=== PATIENT | female | born 1980 | race Caucasian/White ===

== ENCOUNTER 2019-05-30 06:25 | Inpatient (IN) | payer OTHER, BC ==
[2019-05-26 11:32] LABS: BASOPHILS # (AUTO) 0.1 (0.0-0.1); BASOPHILS % 0.7 % (0.0-1.0); EOSINOPHILS # (AUTO) 0.3 (0.0-0.4); EOSINOPHILS % 3.1 % (0.0-6.0); HEMATOCRIT 34.6 % (34.2-44.1); HEMOGLOBIN 10.8 g/dL (12.0-16.0); LYMPHOCYTES # (AUTO) 1.8 (1.0-3.2); LYMPHOCYTES % 21.7 % (18.0-39.1); MEAN CORPUSCULAR HEMOGLOBIN 27.1 pg (28-32); MEAN CORPUSCULAR HGB CONC 31.2 g/dL (31-35); MEAN CORPUSCULAR VOLUME 86.7 fL (81-99); MONOCYTES # (AUTO) 0.6 (0.2-0.8); MONOCYTES % 6.9 % (4.4-11.3); NEUTROPHILS # (AUTO) 5.5 (2.1-6.9); NEUTROPHILS % 67.4 % (38.7-80.0); PLATELET COUNT 223 x10e3/uL (140-360); RED BLOOD COUNT 3.99 x10e6/uL (3.6-5.1); RED CELL DISTRIBUTION WIDTH 14.2 % (11.7-14.4)
[2019-05-30] VITALS (8 sets, daily range): BP systolic 129–151; BP diastolic 66–81
[~2019-05-30 06:25] MED LIST: MELOXICAM7.5 MG PO; OMEPRAZOLE40 MG PO; VITAMIN D1000 UNI1 PO
--- OUTSIDE RECORDS SUMMARY | 2019-05-30 06:35 | XMS REPORT | Summary of Care ---
Author Organization Unknown Address Unknown Phone Unavailable Encounter HQ Leannguillermina_kartik(JYA) [id number] Date(s): 08/30/14 - 08/30/14 [facility] Outpatient Imaging - [place] [id number] [place] [address] Discharge Disposition: Home Physician Attending: Funmilayo Collier MD Reason for Visit 785.1 - PALPITATIONS Problem List No data available for this section Allergies, Adverse Reactions, Alerts No data available for this section Medications No data available for this section Medications Administered During Your Visit No data available for this section Immunizations No data available for this section
--- OUTSIDE RECORDS SUMMARY | 2019-05-30 06:35 | XMS REPORT | Summary of Care ---
Author Author [facility] Outpatient Imaging [facility]patient [facility] Address Unknown Phone Unavailable Encounter HQ Encntr_alijohn(FIN) [id number] Date(s): 12/11/17 - 12/11/17 [facility] Outpatient Imaging [facility] [address] [facility], [address] [place] [address] [phone] Encounter Diagnosis Noninflammatory disorder of uterus, unspecified (Final) - 12/16/17 Intramural leiomyoma of uterus (Final) - Follicular cyst of left ovary (Final) - Discharge Disposition: Home or Self Care Attending Physician: Jennifer Sandoval MD Vital Signs No data available for this section Problem List No data available for this section Allergies, Adverse Reactions, Alerts No data available for this section Medications No data available for this section Results No data available for this section Immunizations No data available for this section Procedures No data available for this section Social History No data available for this section Assessment and Plan No data available for this section
--- OUTSIDE RECORDS SUMMARY | 2019-05-30 06:35 | XMS REPORT | Continuity of Care Document ---
Author Author [facility] Organization [facility] Address Unknown Phone Unavailable Care Team Providers Care Cardiothoracic Anesthesia Technician Name Role Phone [facility] Unavailable Unavailable Problems Problem Status Onset Date Classification Date Reported Comments Source Noninflammatory disorder of uterus, unspecified 12/17/2017 03/19/2018 [facility] [place] R10.9 - UNSPECIFIED ABDOMINAL PAIN Active 10/10/2015 [facility] [email or web address] V76.12 - SCREEN MAMMOGRA Active 01/25/2015 [facility] [place] Intramural leiomyoma of uterus 03/19/2018 [facility] [place] Follicular cyst of left ovary 03/19/2018 [facility] [place] Medications No Data Provided for This Section Allergies, Adverse Reactions, Alerts No Known Medication Allergies Immunizations No Data Provided for This Section Results No Data Provided for This Section Pathology Reports No Data Provided for This Section Diagnostic Reports Report Value Date Source Pelvis w Pelvis Transvaginal US EXAM: US PELVIS TRANSABDOMINAL EXAM: US PELVIS TRANSVAGINAL DATE: 12/11/2017 12:54 PM [employer] MANAGER INDICATION: - D25.9 Leiomyoma of uterus, unspecified. Heavy menstrual cycles the past 2 years. ADDITIONAL INFORMATION: LMP: 12/04/2017; COMPARISON: 01/14/2016. TECHNIQUE: Multiplanar grayscale and color Doppler ultrasound images of the pelvis were obtained transabdominally through a distended urinary bladder followed by transvaginal examination postvoid. FINDINGS: Uterus: Orientation: Anteverted Size: 10.9 x 5.9 x 6.5 cm Masses: Within the right uterine body, again demonstrated is a mixed echogenicity predominantly mildly hyperechoic mass measuring 3.3 x 3.6 x 3.1 cm compatible with an intramural leiomyoma which is increased in size from the prior exam (2.5 x 1.9 x 1.8 cm on prior exam) Cervix: Normal. Endometrium: 13 mm. Within the endometrium, there is a hyperechoic lesion measuring 1.2 x 0.7 x 1.2 cm with a stalk of internal vascularity, likely an endometrial polyp. Right ovary: Size: 2.8 x 2.1 x 2.2 cm Cysts: None. Masses: None. Vascularity: Normal. Left ovary: Size: 3.0 x 2.2 x 2.4 cm Cysts: A dominant simple follicle seen in the left ovary measuring 2.1 cm in maximal diameter. Masses: None. Vascularity: Normal. Adnexa: No adnexal masses or fluid collections are seen. Free fluid: None. Other findings: None. IMPRESSION: 1. Hyperechoic 1.2 cm lesion within the endometrium with internal vascularity, likely an endometrial polyp. Associated endometrial cancer is not excluded. Hysteroscopy and biopsy are recommended for further evaluation. 2. Intramural leiomyoma of the uterus has increased in size and now measures 3.6 cm in maximal diameter Findings were discussed with Dr. Sandoval by telephone on 12/11/2017 at 1420 hours 12/11/2017 [facility] Extremity lower bilat CTA EXAM: CTA BILATERAL LOWER EXTREMITY WITH CONTRAST DATE: 07/03/2016 8:44 AM CDT INDICATION: I73.9 Peripheral vascular disease, unspecified ADDITIONAL INFORMATION: None. COMPARISON: None. TECHNIQUE: Volumetric CT acquisition of the bilateral lower extremity arteries. Axial, coronal and sagittal reconstructions. MIP reformats are created at the acquisition workstation. FINDINGS: CTA begins midpelvis. The ileal femoral system bilaterally from pelvis to groin is normal. Bilateral superficial and deep femoral arteries are without significant atherosclerotic disease and are normal caliber. The popliteal arteries are normal bilaterally. The patient has a slightly higher bifurcation on the right side than the left but there is excellent three-vessel runoff to the foot bilaterally. Degenerative changes in both knees are present IMPRESSION: Normal circulation in the areas imaged includes runoff bilaterally 07/03/2016 [facility] Breast Limited Uni US - BREAST LIMITED UNI US/L ULTRASOUND OF LEFT AXILLA: 05/22/2016 CLINICAL: Breast Mass. Comparison is made to exams dated: 05/22/2016 mammogram - [facility] and 02/01/2015 mammogram - [facility]. Color flow and real-time ultrasound of the left axilla were performed. No abnormalities are identified in the left axilla. Specifically, no suspicious findings are seen at the left axilla palpable area of concern. IMPRESSION: BENIGN Clinical follow-up of the left axilla palpable area of concern is recommended. No abnormal imaging findings identified. There is no sonographic evidence of malignancy. A 4 year screening mammogram is recommended. Abi Randle M.D. ms/:05/22/2016 13:53:07 Oil Refinery Operator: Theresa Sepulveda RT, [facility] This exam was dictated and interpreted by [id number] for Mayelin. letter sent: Normal exam Ultrasound BI-RADS: 2 Benign 05/22/2016 ROBERTO Dick Digital Mammo DX Ilsa MA - DIGITAL MAMMO DX ILSA MA BILATERAL DIGITAL DIAGNOSTIC MAMMOGRAM WITH CAD: 05/22/2016 CLINICAL: N63 Unspecified Lump In Breast. Current study was evaluated with a Computer Aided Detection (CAD) system. Comparison is made to exam dated: 02/01/2015 mammogram - [facility]. There are scattered fibroglandular densities in both breasts. No significant masses, calcifications, or other findings are seen in either breast. IMPRESSION: INCOMPLETE: NEEDS ADDITIONAL IMAGING EVALUATION There is no abnormality seen in the left axilla to correspond with the palpable abnormality and pain in the left axilla, however ultrasound is recommended. Abi Randle M.D. ms/penrad:05/22/2016 12:07:14 Oil Refinery Operator: Sunita Vail RT(R)(M), [facility] This exam was dictated and interpreted by [id number] for Mayelin. Mammogram BI-RADS: 0 Indeterminate 05/22/2016 ROBERTO [facility] Pelvis w Pelvis Transvaginal US EXAM: US PELVIS TRANSABDOMINAL EXAM: US PELVIS TRANSVAGINAL DATE: 01/14/2016 11:51 AM CDT INDICATION: N92.1 Excessive and frequent menstruation with irregular cycle ADDITIONAL INFORMATION: LMP: 12/19/2015; history of prior . COMPARISON: None. TECHNIQUE: Multiplanar grayscale and color Doppler ultrasound images of the pelvis were obtained transabdominally through a distended urinary bladder followed by transvaginal examination postvoid. FINDINGS: Uterus: Orientation: Anteverted Size: 11.3 x 6.0 x 7.1 cm Masses: Within the anterior right uterine body, there is an intramural and submucosal hypoechoic mass measuring 2.5 x 1.9 x 1.8 cm compatible with a leiomyoma. Cervix: Simple nabothian cysts are seen in the cervix. Endometrium: 17 mm. Slightly thickened with some slight heterogeneity. No focal abnormalities or abnormal endometrial vascularity are seen. Right ovary: Size: 2.6 x 2.3 x 3.7 cm Cysts: None. Masses: None. Vascularity: Normal. Left ovary: Size: 3.1 x 1.8 x 1.7 cm Cysts: None. Masses: None. Vascularity: Normal. Adnexa: No adnexal masses or fluid collections are seen. Free fluid: A trace amount simple free fluid is seen in the retrouterine cul-de-sac.. Other findings: None. IMPRESSION: 1. Mild heterogeneity of the endometrium with thickening up to 17 mm. Underlying endometrial polyps, cancer, or endometrial hyperplasia are not excluded. If endometrial biopsy is not performed, follow-up ultrasound in 6 weeks' time at a different stage of the menstrual cycle would be recommended to ensure regression/resolution of this finding. 2. Intramural and minimally partially submucosal 2.5 cm leiomyoma of the right uterine body. 3. Small amount of simple free fluid in the retrouterine cul-de-sac, likely physiologic. 01/14/2016 [facility] Abdomen complete US EXAM: ABDOMINAL ULTRASOUND CLINICAL INDICATION: Abdominal pain COMPARISON: None DISCUSSION: Transverse and longitudinal images of the upper abdomen were obtained. The liver demonstrates slight increased echogenicity can suggesting underlying fatty infiltration. The liver measures 16 cm at the midclavicular line.. The spleen is normal in echogenicity and size measuring 10.7 centimeters in length. No focal masses are seen in either the liver or spleen. The gallbladder is normal in appearance without stones, wall thickening or pericholecystic fluid. The sonographic Ward's sign is negative. There is no intrahepatic biliary dilatation. The common bile duct is normal in caliber and measure 3 mm. The visualized portions of the pancreas are unremarkable. The right kidney measures 11.3 centimeters in length and the left kidney measures 12.4 centimeters. There is normal renal cortical echogenicity and no hydronephrosis, mass or shadowing calculi. The visualized portions of the great vessels are normal. No free fluid is seen. Additional images of the area of patient concern in the right lower quadrant were obtained. Limited views of a normal appearing ovary were seen in that region. No other masses or fluid collections were seen. IMPRESSION: 1. Slight increased echogenicity. 2. Otherwise unremarkable exam.. Dictated by staff: Dr. Da Silva. 10/11/2015 [facility] Consultation Notes No Data Provided for This Section Discharge Summaries No Data Provided for This Section History and Physicals No Data Provided for This Section Vital Signs No Data Provided for This Section Encounters Location Location Details Encounter Type Encounter Number Reason For Visit Attending Provider ADM Date DC Date Status Source [facility] Outpatient Imaging - [place] [facility] [id number] Funmilayo Amira 08/30/2014 08/31/2014 [facility] [place] [facility] Outpatient Imaging - [place] [facility] [id number] Funmilayo Amira 02/01/2015 02/02/2015 [facility] [place] [facility] Outpatient Imaging - [place] [facility] [id number] Joe Ward 10/11/2015 10/12/2015 [facility] [place] [facility] Outpatient Imaging - [place] [facility] [id number] Funmilayo Amira 01/14/2016 01/15/2016 [facility] [place] [facility] Outpatient Imaging - [place] [facility] [id number] Funmilayo Amira 05/22/2016 05/23/2016 [facility] [place] [facility] Outpatient Imaging - [place] [facility] [id number] Curtis Warren 07/03/2016 07/04/2016 [facility] [place] [facility] Outpatient Imaging - [place] [facility] [id number] Jennifer Sandoval 12/11/2017 12/12/2017 [facility] [place] Procedures No Data Provided for This Section Assessment and Plan No Data Provided for This Section Plan of Care No Data Provided for This Section Social History Social History Date Source No data available for this section 12/12/2017 [facility] [place] No data available for this section 05/23/2016 [facility] [place] No data available for this section 02/02/2015 [facility] [place] Family History No Data Provided for This Section Advance Directives No Data Provided for This Section Functional Status No Data Provided for This Section
--- OUTSIDE RECORDS SUMMARY | 2019-05-30 06:35 | XMS REPORT | Summary of Care ---
Author Author [facility] Outpatient Imaging [facility]3] Outpatient Imaging [facility] Address Unknown Phone Unavailable Encounter HQ Encntr_alijohn(FIN) [id number] Date(s): 01/14/16 - 01/14/16 [facility] Outpatient Imaging [facility] [address] [facility], [address] [place], [place] [address] [place] [address] [phone] Discharge Disposition: Home Attending Physician: Funmilayo Collier MD Vital Signs No data available for [...]
--- OUTSIDE RECORDS SUMMARY | 2019-05-30 06:35 | XMS REPORT | Summary of Care ---
Author Author [facility] Outpatient Imaging [facility] Outpatient [facility] Address Unknown Phone Unavailable Encounter HQ Encntr_alijohn(FIN) [id number] Date(s): 10/11/15 - 10/11/15 [facility] Outpatient Imaging [facility] [address] [facility], [address] [place], [place] [address] [phone] Discharge Disposition: Home Attending Physician: Joe Ward MD Vital Signs No data available for [...]
--- OUTSIDE RECORDS SUMMARY | 2019-05-30 06:35 | XMS REPORT | Summary of Care ---
Author Organization Unknown Address Unknown Phone Unavailable Encounter HQ Encntr_alias(FIN) [id number] Date(s): 02/01/15 - 02/01/15 [facility] Outpatient Imaging - [address] [phone] Discharge Disposition: Home Physician Attending: Funmilayo Collier MD Vital Signs No data [...]
--- OUTSIDE RECORDS SUMMARY | 2019-05-30 06:35 | XMS REPORT | Clinical Summary ---
Author Author [facility] [place] [facility] Address Unknown Phone Unavailable Care Team Providers Care Workers Compensation Examiner Name Role Phone Funmilayo Collier MD PCP Allergies Comments Active Allergy Reactions Severity Noted Date Aspirin 06/11/2017 Penicillins 06/11/2017 Medications End Date Status Medication Sig Dispensed Refills Start Date Active omeprazole (PriLOSEC) 20 TK 1 C PO D 1 05/01/201 MG capsule 7 Active Problems Not on file Social History Date Tobacco Use Types Packs/Day Years Used Never Smoker Alcohol Use Drinks/Week oz/Week Comments No Sex Assigned at Date Recorded Not on file Industry Job Start Date Occupation Not on file Not on file Not on file Travel End Travel History Travel Start No recent travel history available. Last Filed Vital Signs Not on file Plan of Treatment Health Maintenance Due Date Last Done Comments INFLUENZA VACCINE 06/02/2019 08/06/2016, 07/30/2015, 08/30/2014 Results Not on fileafter 05/29/2018 Insurance Type Payer Benefit Subscriber ID Effective Phone Address Plan / Dates Group PPO BCBS ANTHEM xxxxxxxxxxxx [id number] BLUE CROSS resent Advance Directives Patient has advance care planning documents on file. For more information, kristy hannon contact: Pepito Cervantes [address] [place] [address]
--- OUTSIDE RECORDS SUMMARY | 2019-05-30 06:36 | XMS REPORT | Summary of Care ---
Author Author [facility] Outpatient Imaging [facility] Outpatient [facility] Address Unknown Phone Unavailable Encounter HQ Encntr_alias(FIN) [id number] Date(s): 07/03/16 - 07/03/16 [facility] Outpatient Imaging [facility] [address] [facility], [address] [place] [phone] Discharge Disposition: Home or Self Care Attending Physician: Curtis Warren MD Vital Signs No data available for [...]
--- OUTSIDE RECORDS SUMMARY | 2019-05-30 06:36 | XMS REPORT | Summary of Care ---
Author Author [facility] Unknown Address Unknown Phone Unavailable Care Team Providers Care Drawing Instructor Name Role Phone TARSHA DUEÑAS M.D. Unavailable Unavailable SPENSER MENDOZA DC, TARSHA Gamble Unavailable Unavailable Unavailable Unavailable Functional Status Name Dates Details Functional status health issues are not documented Status: Name Dates Details Cognitive status health issues are not documented Status: Problems Name Dates Details Anxiety (300.00, F41.9) Status: Active Encounter for routine gynecological examination with Papanicolaou smear of cervix (V72.31, Z01.419) Status: Active Flu vaccine need (V04.81, Z23) Status: Active Immunity status testing (V72.61, Z01.84) Status: Active Anemia (285.9, D64.9) Status: Active Bilateral edema of lower extremity (782.3, R60.0) Status: Active Menometrorrhagia (626.2, N92.1) Status: Active 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, 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) Status: Active Claudication, intermittent (443.9, I73.9) Status: Active Tinea pedis of right foot (110.4, B35.3) Status: Active Breast mass (611.72, N63.0) Status: Active PAD (peripheral artery disease) (443.9, I73.9) Status: Active Tachycardia (785.0, R00.0) Status: Active Obesity (278.00, E66.9) Status: Active Acute recurrent sinusitis (461.9, J01.91) Status: Active Arthralgia (719.40, M25.50) Status: Active Leg cramping (729.82, R25.2) Status: Active Acid reflux (530.81, K21.9) Status: Active Irregular menstrual cycle (626.4, N92.6) Status: Active Need for influenza vaccination (V04.81, Z23) Status: Active Acute vaginitis (616.10, N76.0) Status: Active Burning with urination (788.1, R30.0) Status: Active Screening-pulmonary TB (V74.1, Z11.1) Status: Active Acute bronchitis due to infection (466.0, J20.8) Status: Active Tinea corporis (110.5, B35.4) Status: Active Acute pharyngitis (462, J02.9) Status: Active Fibroids (218.9, D25.9) Status: Active Abdominal pain in female (789.00, R10.9) Status: Active Abnormal ultrasound of uterus (793.5, R93.5) Status: Active Abnormal uterine bleeding (AUB) (626.9, N93.9) Status: Active Medications Name Dates Details Advil 200 MG Oral Tablet TAKE 4 TABLET DAILY PRN * Start : 02-Jun-2016 Active Omeprazole 20 MG Oral Capsule Delayed Release TAKE 1 CAPSULE BY MOUTH DAILY * Quantity: 90 Refills: 0 TARSHA DUEÑAS M.D. * Start : 29-Jan-2018 Active Voltaren GEL * Refills: 0 Active M2 Magnesium CAPS * Refills: 0 Active Allergies and Adverse Reactions Name Dates Details Aspirin TABS (Allergy) Status: Active Penicillins (Allergy) Status: Active Past Medical History Name Dates Details History of No significant past medical history Status: Resolved Procedures Procedure Dates Details [QLH] CBC (INCLUDES DIFF/PLT) Date: 09-Dec-2017 History of Section Completed Immunization Name Dates Details Fluzone INJ Lot #: [id number] on: 30-Aug-2014 MMR Lot #: [id number] on: 30-Jan-2015 Hepatitis B Lot #: [id number] on: 30-Jan-2015 Hepatitis B Lot #: [id number] on: 27-Feb-2015 Hepatitis B Lot #: [id number] on: 30-Jul-2015 Fluzone INJ Lot #: [id number] on: 30-Jul-2015 PPD Lot #: [id number] on: 28-Aug-2015 MMR Lot #: [id number] on: 11-Sep-2015 Fluzone Quadrivalent 0.5 ML Intramuscular Suspension Lot #: [id number] on: 06-Aug-2016 PPD Lot #: [id number] on: 06-Aug-2016 PPD Lot #: [id number] on: 25-Nov-2016 Fluzone Quadrivalent 0.5 ML Intramuscular Suspension Lot #: [id number] on: 16-Jul-2017 Tubersol 5 UNIT/0.1ML Intradermal Solution Lot #: [id number] on: 30-Sep-2017 Family History Name Dates Details Family history of chronic obstructive pulmonary disease (V17.6, Z82.5) Status: Active Family history of renal failure (V18.69, Z84.1) Status: Active Family history of hypertension (V17.49, Z82.49) Status: Active Family history of arthritis (V17.7, Z82.61) Status: Active Family history of congestive heart failure (V17.49, Z82.49) Status: Active Name Dates Details Family history of congestive heart failure (V17.49, Z82.49) Status: Active Social History Name Dates Details - Status: Name Dates Details Never smoker Vital Signs Date Test Result Details No Known Vitals to report Results Date Description Value Details Results not documented Plan of Care Name Dates Details Planned Observations Planned Goals not documented Instructions Name Dates Details Instructions not documented Encounters Appointment; TARSHA DUEÑAS M.D. Encounter Diagnosis: Problem not documented On: 19-May-2016 10:45 Appointment; EDWARD CARDOZA M.D. Encounter Diagnosis: Problem not documented On: 02-Jun-2016 11:00 Appointment; SANDOVAL LAINEZ Encounter Diagnosis: Problem not documented On: 09-Jun-2016 13:00 Appointment; EDWARD CARDOZA M.D. Encounter Diagnosis: Problem not documented On: 16-Jun-2016 11:00 Appointment; TARSHA DUEÑAS M.D. Encounter Diagnosis: Problem not documented On: 06-Aug-2016 15:15 Appointment; KUNAL WILLIAM M.D. Encounter Diagnosis: Problem not documented On: 12-Aug-2016 13:00 Appointment; ANDRÉS MCNULTY D.O. Encounter Diagnosis: Problem not documented On: 25-Nov-2016 15:45 Appointment; TARSHA DUEÑAS M.D. Encounter Diagnosis: Problem not documented On: 12-Dec-2016 9:30 Appointment; TARSHA DUEÑAS M.D. Encounter Diagnosis: Problem not documented On: 22-May-2017 13:45 Appointment; TARSHA DUEÑAS M.D. Encounter Diagnosis: Problem not documented On: 16-Jul-2017 12:30 Appointment; DIANA MICHELLE NP Encounter Diagnosis: Problem not documented On: 30-Sep-2017 15:45 Appointment; DIANA MICHELLE NP Encounter Diagnosis: Problem not documented On: 15-Oct-2017 14:00 Appointment; ANDRÉS MCNULTY D.O. Encounter Diagnosis: Problem not documented On: 05-Nov-2017 14:00 Appointment; MARLEEN BAEZ M.D. Encounter Diagnosis: Problem not documented On: 09-Dec-2017 15:30
[2019-05-30] MEDS ORDERED: LEVOFLOXACIN 500MG/D5W 100ML 100 ML IV ONE (06:44)
[2019-05-30] MEDS ORDERED: BUPIVACAINE 0.25% 30ML SDV INJ ONE (06:57)
[2019-05-30] MEDS ORDERED: SCOPOLAMINE 1.5 MG PATCH TOP SCH (07:30)
[2019-05-30] MEDS ORDERED: METOCLOPRAMIDE HCL 10 MG/2ML VIAL ONE (09:02)
[2019-05-30] MEDS ORDERED: ONDANSETRON HCL INJ 2MG/ML 2ML 2 MG/ML VIAL ONE ×2 (09:02→18:50)
[2019-05-30] MEDS ORDERED: HYDROMORPHONE 2MG/ML 2 MG/ML ML ONE (09:02)
--- NOTE | 2019-05-30 09:35 | NUR ---
received report from Rachelle. pt is s/p lap gastric sleeve. pt vitals are 120/70 hr 84 rr 20 o2 sat 96% on 2L of oxygen and temp 98.5 degrees F.
--- OUTSIDE RECORDS SUMMARY | 2019-05-30 09:42 | XMS REPORT | Continuity of Care Document ---
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 Name Role Phone [employer] Unavailable Unavailable Problems Problem Status Onset Date Classification Date Reported Comments Source Noninflammatory disorder of uterus, unspecified 12/17/2017 03/19/2018 [facility] R10.9 - UNSPECIFIED ABDOMINAL PAIN Active 10/10/2015 [facility] V76.12 - SCREEN MAMMOGRA Active 01/25/2015 [facility] [place] Intramural leiomyoma of uterus 03/19/2018 [facility] Follicular cyst of left ovary 03/19/2018 [facility] Medications No Data Provided for This Section Allergies, Adverse Reactions, Alerts No Known Medication Allergies Immunizations No Data Provided for This Section Results No Data Provided for This Section Pathology Reports No Data Provided for This Section Diagnostic Reports Report Value Date Source Pelvis w Pelvis Transvaginal US EXAM: US PELVIS TRANSABDOMINAL EXAM: US PELVIS TRANSVAGINAL DATE: 12/11/2017 12:54 PM SALES ANALYST INDICATION: - D25.9 Leiomyoma of uterus, unspecified. [...] telephone on 12/11/2017 at 1420 hours 12/11/2017 [facility] Extremity lower bilat CTA EXAM: CTA BILATERAL [...] the areas imaged includes runoff bilaterally 07/03/2016 [facility] Breast Limited Uni US - BREAST LIMITED UNI US/L ULTRASOUND OF LEFT AXILLA: 05/22/2016 CLINICAL: Breast Mass. Comparison is made to exams dated: 05/22/2016 mammogram - [facility] and 02/01/2015 mammogram - [facility]. Color flow and real-time ultrasound of the [...] is recommended. Abi Randle M.D. ms/:05/22/2016 13:53:07 Geology Associate: Theresa Sepulveda RT, [facility] This exam was dictated and interpreted by [id number] for Mayelin. letter sent: Normal exam Ultrasound BI-RADS: 2 Benign 05/22/2016 ROBERT[facility] Dick Digital Mammo DX Ils[place] MA - DIGITAL MAMMO DX ILSA MA BILATERAL DIGITAL DIAGNOSTIC MAMMOGRAM WITH CAD: 05/22/2016 CLINICAL: N63 Unspecified Lump In Breast. Current study was evaluated with a Computer Aided Detection (CAD) system. Comparison is made to exam dated: 02/01/2015 mammogram - [facility]. There are scattered fibroglandular densities in both breasts. No significant masses, calcifications, or other findings are seen in either breast. IMPRESSION: INCOMPLETE: NEEDS ADDITIONAL IMAGING EVALUATION There is no abnormality seen in the left axilla to correspond with the palpable abnormality and pain in the left axilla, however ultrasound is recommended. Abi Randle M.D. ms/penrad:05/22/2016 12:07:14 Geology Associate: Sunita Vail RT(R)(M), [facility] This exam was dictated and interpreted by [id number] for Mayelin. Mammogram BI-RADS: 0 Indeterminate 05/22/2016 [...] in the retrouterine cul-de-sac, likely physiologic. 01/14/2016 [facility] Abdomen complete US EXAM: ABDOMINAL ULTRASOUND CLINICAL [...] Dictated by staff: Dr. Da Silva. 10/11/2015 [facility] Consultation Notes No Data Provided for This Section Discharge Summaries No Data Provided for This Section History and Physicals No Data Provided for This Section Vital Signs No Data Provided for This Section Encounters Location Location Details Encounter Type Encounter Number Reason For Visit Attending Provider ADM Date DC Date Status Source [facility] [place] [facility] [id number] Funmilayo Amira 08/30/2014 08/31/2014 [facility] [place] [facility] [place] [facility] [id number] Funmilayo Amira 02/01/2015 02/02/2015 [facility] [place] [facility] [id number] Joe Ward 10/11/2015 10/12/2015 [facility] [id number] Funmilayo Amira 01/14/2016 01/15/2016 [facility] [place] [facility] [id number] Funmilayo Amira 05/22/2016 05/23/2016 [facility] [place] [facility] [id number] Curtis Warren 07/03/2016 07/04/2016 [facility] [id number] Jennifer Sandoval 12/11/2017 12/12/2017 [facility] Procedures No Data Provided for This Section Assessment and Plan No Data Provided for This Section Plan of Care No Data Provided for This Section Social History Social History Date Source No data available for this section 12/12/2017 [facility] No data available for this section 05/23/2016 [facility] [place] No data available for this section 02/02/2015 [facility] [place] Family History No Data Provided for This Section Advance Directives No Data Provided for This Section Functional Status No Data Provided for This Section
--- OUTSIDE RECORDS SUMMARY | 2019-05-30 09:42 | XMS REPORT | Clinical Summary ---
Author Author [facility] [employer] Address Unknown Phone Unavailable Care Team Providers Care Rn Maternity Name Role Phone Funmilayo Collier MD PCP [...] more information, kristy hannon contact: Pepito Cervantes [address] [place] [address]
--- NOTE | 2019-05-30 09:58 | NUR ---
Received pt from PACU, pt is alert, no s/s of distress. 2L O2 via NC Right Hand 20g with IVF running. IV site is asymptomatic. CRISTINA hose and SCD are in place, SCD attached to pump. pt is complaining of pain on the right side of abdomen.
[2019-05-30] MEDS: ONDANSETRON HCL INJ 2MG/ML 2ML 2 MG/ML VIAL IV PRN ×2 (11:10→22:10)
[2019-05-30] MEDS: MORPHINE SULFATE 2 MG/ML SYR 1ML IV PRN ×3 (11:10→22:10)
--- NOTE | 2019-05-30 11:19 | Operative Report ---
DATE OF PROCEDURE: 05/30/2019 SURGEON: Greg Velazquez MD PREOPERATIVE DIAGNOSES: 1. Morbid obesity. 2. BMI 43. 3. Obstructive sleep apnea. 4. Gastroesophageal reflux disease. POSTOPERATIVE DIAGNOSES: 1. Morbid obesity. 2. BMI 43. 3. Obstructive sleep apnea. 4. Gastroesophageal reflux disease. PREOPERATIVE INDICATION: Treat disease, prevent complications related to comorbid conditions of obesity. PROCEDURE: Laparoscopic vertical sleeve gastrectomy. ANESTHESIA: General. COATING ENGINEER: Silvano Salinas, surgical device sales representative (needed due to complexity of case). FLUIDS: 1 L crystalloid. ESTIMATED BLOOD LOSS: 70 mL. DRAINS: None. COMPLICATIONS: None. SPECIMENS: Partial stomach. FINDINGS: 1. Normal upper GI anatomy. 2. Negative intraoperative EGD leak test. 3. Hepatomegaly. GRAFTS: None. PROCEDURE IN DETAIL: The patient was brought to the operating room and was intubated under general endotracheal anesthesia. She was sterilely prepped and draped in the usual fashion. A preprocedure pause was performed identifying the patient, use of perioperative antibiotics, intended procedure, and staff surgeon. Access was gained via a 5 mm left subcostal incision using a Veress needle. The abdomen was insufflated, four additional trocars were placed in the standard position. Liver retractor was used to expose the stomach. Of note, the liver was extremely large, making visualization of the proximal stomach difficult. I then mobilized the greater curvature of the stomach with the [place] LigaSure device beginning about 4 cm proximal to the pyloric valve to the left josie of the diaphragm. An adult sized endoscope was then inserted along the lesser curvature of stomach. The greater curve of the stomach was resected with multiple firings of an Endo DIANNA [employer] stapling device. The first two loads were 60 mm green loads. The final loads were blue load 60 mm in size. Hemoclips were applied on the staple line where there were necessary. We submerged the sleeve under saline. No leaks were identified. The specimen was removed through the right periumbilical port site. The port site was closed with 0 Vicryl suture using the Jonathan Scott technique in a [id number] fashion. Hemostasis was again verified and the abdomen was desufflated. The trocars were removed. Liver tractor was removed. The incision sites were closed with 4-0 Monocryl suture in a subcuticular fashion. Dermabond dressings were applied. A 0.25% bupivacaine was used both at the preperitoneal incision sites. The patient tolerated the procedure well. Type of wound was type 2, clean and contaminated. MD DECLAN Coleman/ANABEL /[id number]
--- NOTE | 2019-05-30 11:47 | NUR ---
pt complaining of gas, instructed pt that ambulation will help relieve the gas feeling. pt verbalized understanding but stated that she doesn't think that she will be able to walk at this time. will continue to encourage pt to ambulate.
[2019-05-30] MEDS ORDERED: PROMETHAZINE 12.5MG/ NACL 0.9% 12.5 MG/50 ML BAG IV PRN (17:45)
[2019-05-30] MEDS ORDERED: LIDOCAINE HCL 2% LOCAL INJ 5 ML SDV VIAL INJ ONE (18:50)
[2019-05-30] MEDS ORDERED: PROPOFOL IV EMULSION 10 MG/ML 20 ML VIAL ONE (18:50)
[2019-05-30] MEDS ORDERED: MIDAZOLAM HCL 2 MG/2 ML VIAL ONE (18:50)
[2019-05-30] MEDS ORDERED: DEXAMETHASONE SOD PHOS INJ 4 MG/ML VIAL ONE (18:50)
[2019-05-30] MEDS ORDERED: ROCURONIUM BROMIDE 10 MG/ML 5ML VIAL ONE (18:50)
[2019-05-30] MEDS ORDERED: SEVOFLURANE INHAL SOLN 250 ML PEN BTL ONE (18:50)
[2019-05-30] MEDS ORDERED: FENTANYL CITRATE/PF 100MCG/2 ML INJ ONE (18:50)
--- NOTE | 2019-05-30 19:43 | NUR ---
RECEIVED PT IN BED AOX3 .C/O MILD PAIN PT HAS PT HAS TROCHAR SITES ON HE ABDOMEN.PT IS NPO .RT HAND 20 G NS AT 125 ML/HR .CALL LIGHT WITH IN REACH . FAMILY AT THE BEDSIDE CONTINUE TO MONITOR
[2019-05-30] MEDS: ENOXAPARIN SOD INJ 40 MG/0.4 ML SYR SC SCH (21:13)
[2019-05-30] MEDS: SODIUM CHLORIDE 0.9% 1000ML 1,000 ML IV SCH (23:26)
[2019-05-31 05:04] VITALS: BP 141/81
--- NOTE | 2019-05-31 05:27 | NUR ---
PT C/O PAIN X1 ND GIVEN THE ORDERED PAIN MEDICATION .NO ACUTE DISTRESS NOTED.CALL LIGHT WITH WITH IN REACH .CONTINUE TO MONITOR
[2019-05-31 05:36] LABS: BASOPHILS % 0.2 % (0.0-1.0); EOSINOPHILS % 0.3 % (0.0-6.0); HEMATOCRIT 30.2 % (34.2-44.1); HEMOGLOBIN 9.4 g/dL (12.0-16.0); LYMPHOCYTES # (AUTO) 1.9 (1.0-3.2); LYMPHOCYTES % 15.5 % (18.0-39.1); MEAN CORPUSCULAR HEMOGLOBIN 27.2 pg (28-32); MEAN CORPUSCULAR HGB CONC 31.1 g/dL (31-35); MEAN CORPUSCULAR VOLUME 87.3 fL (81-99); MONOCYTES % 8.3 % (4.4-11.3); NEUTROPHILS # (AUTO) 9.2 (2.1-6.9); NEUTROPHILS % 75.2 % (38.7-80.0); PLATELET COUNT 198 x10e3/uL (140-360); RED BLOOD COUNT 3.46 x10e6/uL (3.6-5.1); RED CELL DISTRIBUTION WIDTH 14.2 % (11.7-14.4)
[2019-05-31 05:58] LABS: ALANINE AMINOTRANSFERASE 17 IU/L (0-55); ALBUMIN 3.1 g/dL (3.5-5.0); ALBUMIN/GLOBULIN RATIO 0.8 (0.8-2.0); ALKALINE PHOSPHATASE 61 IU/L (40-150); ANION GAP 11.8 mmol/L (8-16); BLOOD UREA NITROGEN 8 mg/dL (7-26); BUN/CREATININE RATIO 10 (6-25); CALCIUM 8.4 mg/dL (8.4-10.2); CARBON DIOXIDE 23 mmol/L (22-29); CHLORIDE 107 mmol/L (98-107); CREATININE, SERUM 0.83 mg/dL (0.57-1.11); EST GLOMERULAR FILTRATION RATE > 60 ML/MIN (60-); GLUCOSE 89 mg/dL (74-118); MAGNESIUM 2.2 MG/DL (1.3-2.1); PHOSPHORUS 2.6 MG/DL (2.3-4.7); POTASSIUM 3.8 mmol/L (3.5-5.1); SODIUM 138 mmol/L (136-145)
--- NOTE | 2019-05-31 07:00 | NUR ---
received am report from nurse, morning rounds done. pt is alert, no s/s of distress. pt is complaining of having gas that is not relieved by ambulating. no other complaints at this time. call light within reach, pt instructed to call for help
--- NOTE | 2019-05-31 07:00 | NUR ---
PT C/O CHEST PAIN ORDERED STAT EKG AND SHOWS NORMAL SR .NOTIFIED DR MICHELLE .
[2019-05-31] MEDS ORDERED: HYDROCODONE/APAP 7.5MG-325MG 1 EA TAB PO PRN (07:30)
[2019-05-31] MEDS: SODIUM CHLORIDE 0.9% 1000ML 1,000 ML IV SCH (07:34)
--- NOTE | 2019-05-31 07:34 | NUR ---
REPORT GIVEN TO THE ONCOMING NURSE
--- NOTE | 2019-05-31 07:54 | NUR ---
PROGRESS NOTE S: Nausea overnight, better this a.m. O: AF, VSS General- no acute distress; standing comfortably Abdomen- soft, incisions c/d/i A/P: POD 1, s/p lap sleeve gastrectomy for morbid obesity -Clears, ambulate, OOB to chair, IS -Ok to d/c home from my perspective -Appreciate hospitalist care provided by Dr. Diego -Patient given home-going diet instructions and post op pain/nausea meds provided
[2019-05-31 08:18] VITALS: BP 115/59
[2019-05-31 09:52] VITALS: BP 115/59
[2019-05-31] MEDS: ENOXAPARIN SOD INJ 40 MG/0.4 ML SYR SC SCH (11:09)
[2019-05-31 12:00] VITALS: BP 128/72
--- NOTE | 2019-05-31 13:53 | NUR ---
Nutrition Screen Note RD Recommendation for Physician: -Advance diet as tolerated -Follow up with bariatric clinic as outpatient Plan of Care: RD following, monitoring for tolerance and adequacy, diet education Nutrition reason for involvement: MD Consult bariatric diet education Primary Diagnose(s): s/p lap sleeve gastrectomy for morbid obesity PMH: no H&P indicated Ht: - Wt: 272.04lb BMI: - IBW: - RD Assessment: (05/31) Chart reviewed. Labs and meds reviewed. 38yo F, who was admitted for lap sleeve gastrectomy. POD 1. Visited pt in the room. Pt took a few sips of clear liquid this AM. No complains of nausea or vomiting. RD was consulted for diet education. Handouts were provided. All questions have been answered. Current Diet: bariatric clear liquid Malnutrition Evaluation (05/31/2019) The patient does not meet criteria for a specified degree of malnutrition at this time. Will re-evaluate at follow-up as appropriate. Diet Education Needs Assessment: Diet education indicated, pt was agreeable. Learner(s): pt Time spent: 20minutes Barriers: none Cultural/Language Modifications: No cultural/language modifications noted. Pt speaks Malian. Readiness: acceptance Method: explanation/ discussion, handout Topics: Bariatric diet (clear liquid, full liquid, pureed) Understanding/Compliance: good compliance expected, needs reinforcement at outpatient bariatric clinic, all questions have been answered Nutrition Care Level: low Signed: Crissy Saucedo, , RD, LD
--- NOTE | 2019-05-31 14:00 | NUR ---
Visit made by the Spiritual Care Department Pastoral Visitor, Amanda Aragon. Pt sleeping soundly and no family present. Pastoral Visitor left a card describing availability of keno writer/runner and instructions on how to contact a keno writer/runner. VENICE العراقي Salon Coordinator Spiritual Care Department O: [phone] Pager: [phone] ([phone] calling from)
[2019-05-31 16:47] VITALS: BP 128/62
--- NOTE | 2019-05-31 17:33 | NUR ---
spoke with Dr. high over the phone and got discharge orders. he stated that he already gave her instructions and left prescription on the chart
== END 2019-05-31 18:21 | disposition home or self-care (01) | DRG 621 ==
LOC: OR 06:25 → MED/SURG 09:39
PROVIDERS: ADMIT Surgery; ATTEND Surgery
PROC: 0DB64Z3 Excision of Stomach, Percutaneous Endoscopic Approach, Vertical (ICD-10-PCS; principal; 2019-05-30 08:00)
DX: E66.01 Morbid (severe) obesity due to excess calories (principal); Z68.41 Body mass index [BMI] 40.0-44.9, adult; G47.33 Obstructive sleep apnea (adult) (pediatric); K21.9 Gastro-esophageal reflux disease without esophagitis; R16.0 Hepatomegaly, not elsewhere classified; R11.0 Nausea; Z98.1 Arthrodesis status; Z88.6 Allergy status to analgesic agent; Z88.0 Allergy status to penicillin
CPT/HCPCS: 36415; 80053; 81025; 83735; 84100; 85025; 93005; J1100; J1650; J1956; J2001; J2250; J2270; J2405; J2550; J2765; J3010; J7030